=== PATIENT | female | born 1940 | race Caucasian/White ===

== ENCOUNTER 2017-08-07 07:40 | Observation (INO) ==
--- NOTE | 2017-08-07 07:57 | Emergency Department Note ---
Disposition Clinical Impression: Disequilibrium, Frequent falls, Unsteady gait, UTI (urinary tract infection) Disposition: Admitted As Inpatient Condition: Good General Adult HPI - General Chief complaint: ED Fall Stated complaint: Multiple falls Time Seen by Provider: 08/07/17 07:54 Source: patient, family Limitations: no limitations - History of Present Illness Pain Scale: 0 - Related Data Home Medications Medication Instructions Recorded Confirmed ALPRAZolam [Xanax 0.25 MG Tablet] 0.25 mg PO QID 08/07/17 08/07/17 Pantoprazole Sodium [Protonix] 40 mg PO DAILY 08/07/17 08/07/17 Allergies Allergy/AdvReac Type Severity Reaction Status Date / Time No Known Allergies Allergy Verified 08/07/17 09:09 Past Medical History - Past Medical History Medical history: Reports: non-contributory, arthritis, GERD, kidney stones, renal disease Surgical history: Reports: non-contributory, orthopedic, other Psychiatric history: Reports: anxiety - Social History Smoking Status: Current every day smoker Smokeless Tobacco Status: No Alcohol use: Reports: none Drug use: Reports: none Physical Exam - General Limitations: no limitations General appearance: alert Course Vital Signs Temperature 97.6 F 08/07/17 07:44 Pulse Rate 92 08/07/17 07:44 Respiratory Rate 18 08/07/17 07:44 Blood Pressure 160/96 08/07/17 07:44 O2 Sat by Pulse Oximetry 96 08/07/17 07:44 Temperature 98.1 F 08/07/17 14:56 Pulse Rate 73 08/07/17 14:56 Respiratory Rate 15 08/07/17 14:56 Blood Pressure 163/83 08/07/17 14:56 O2 Sat by Pulse Oximetry 95 08/07/17 14:56 Oxygen Delivery Oxygen Delivery Room Air Medical Decision Making - Lab Data Result diagrams: 08/07/17 08:28 08/07/17 08:28 Lab Results 08/07/17 08/07/17 08/07/17 Range/Units 08:28 08:28 08:28 WBC 7.1 (4.3-11.1) K/mcL RBC 4.35 (3.82-4.97) M/mcL Hgb 13.5 (11.5-15.4) g/dL Hct 41.2 (35.3-44.9) % MCV 94.7 (83.0-100.0) fL MCH 31.0 (28.0-33.3) pg MCHC 32.8 (31.6-35.5) g/dL RDW 13.4 (11.5-14.5) % Plt Count 333 (140-400) K/mcL MPV 9.8 (9.4-12.4) fL Immature Gran % 0.4 (0-4) % Seg Neutrophils % 69.7 % Lymphocytes % 20.1 % Monocytes % 7.8 % Eosinophils % 1.7 % Basophils % 0.3 % Neutrophils # 4.9 (1.6-8.9) K/mcL Lymphocytes # 1.4 (0.6-4.6) K/mcL Monocytes # 0.6 (0.0-1.3) K/mcL Eosinophils # 0.1 (0.0-0.6) K/mcL Basophils # 0.0 (0.0-0.2) K/mcL Immature Plt Fraction 2.5 (1.1-6.1) % PT 11.1 (9.4-12.1) Seconds INR 1.0 Sodium 142 (136-145) mEq/L Potassium 4.4 (3.5-5.1) mEq/L Chloride 106 (98-107) mEq/L Carbon Dioxide 28 (23-29) mEq/L BUN 15 (8-23) mg/dL Creatinine 0.81 (0.60-1.20) mg/dL Est GFR ( Amer) > 60 (> 60) Est GFR (Non-Af Amer) > 60 (> 60) BUN/Creatinine Ratio 19 (6-26) Glucose 91 (70-105) mg/dL Calculated Osmolality 294 (280-300) Calcium 8.8 (8.6-10.3) mg/dL Magnesium 2.0 (1.6-2.6) mg/dL Total Bilirubin 0.6 (0.3-1.0) mg/dL AST 15 (13-39) Units/L ALT 14 (7-52) Units/L Alkaline Phosphatase 75 (34-104) Units/L Troponin I < 0.03 (< 0.04) ng/mL Serum Total Protein 6.4 (6.4-8.9) g/dL Albumin 3.7 (3.5-5.7) g/dL Globulin 2.7 (2.4-3.5) g/dL Albumin/Globulin Ratio 1.4 (1.1-2.2) Urine Color (Yellow) Urine Clarity (Clear) Urine pH (5.0-8.0) pH Units Ur Specific [place] (1.010-1.025) Urine Protein (Neg-Trace) mg/dL Urine Glucose (UA) (Normal) mg/dL Urine Ketones (Negative) mg/dL Urine Blood (Negative) Urine Nitrite (Negative) Urine Bilirubin (Negative) Urine Urobilinogen (Normal) mg/dL Ur Leukocyte Esterase (Negative) Urine Microscopic RBC (0-3) per hpf Urine Microscopic WBC (0-3) per hpf Ur Squamous Epith Cells (None-Few) per lpf Urine Bacteria (None-Few) per hpf Ur Culture Indicated? (NO) 08/07/17 Range/Units 09:00 WBC (4.3-11.1) K/mcL RBC (3.82-4.97) M/mcL Hgb (11.5-15.4) g/dL Hct (35.3-44.9) % MCV (83.0-100.0) fL MCH (28.0-33.3) pg MCHC (31.6-35.5) g/dL RDW (11.5-14.5) % Plt Count (140-400) K/mcL MPV (9.4-12.4) fL Immature Gran % (0-4) % Seg Neutrophils % % Lymphocytes % % Monocytes % % Eosinophils % % Basophils % % Neutrophils # (1.6-8.9) K/mcL Lymphocytes # (0.6-4.6) K/mcL Monocytes # (0.0-1.3) K/mcL Eosinophils # (0.0-0.6) K/mcL Basophils # (0.0-0.2) K/mcL Immature Plt Fraction (1.1-6.1) % PT (9.4-12.1) Seconds INR Sodium (136-145) mEq/L Potassium (3.5-5.1) mEq/L Chloride (98-107) mEq/L Carbon Dioxide (23-29) mEq/L BUN (8-23) mg/dL Creatinine (0.60-1.20) mg/dL Est GFR ( Amer) (> 60) Est GFR (Non-Af Amer) (> 60) BUN/Creatinine Ratio (6-26) Glucose (70-105) mg/dL Calculated Osmolality (280-300) Calcium (8.6-10.3) mg/dL Magnesium (1.6-2.6) mg/dL Total Bilirubin (0.3-1.0) mg/dL AST (13-39) Units/L ALT (7-52) Units/L Alkaline Phosphatase (34-104) Units/L Troponin I (< 0.04) ng/mL Serum Total Protein (6.4-8.9) g/dL Albumin (3.5-5.7) g/dL Globulin (2.4-3.5) g/dL Albumin/Globulin Ratio (1.1-2.2) Urine Color Yellow (Yellow) Urine Clarity Cloudy A (Clear) Urine pH 6.5 (5.0-8.0) pH Units Ur Specific [place] 1.017 (1.010-1.025) Urine Protein Negative (Neg-Trace) mg/dL Urine Glucose (UA) Normal (Normal) mg/dL Urine Ketones Negative (Negative) mg/dL Urine Blood Negative (Negative) Urine Nitrite Negative (Negative) Urine Bilirubin Negative (Negative) Urine Urobilinogen Normal (Normal) mg/dL Ur Leukocyte Esterase Moderate H (Negative) Urine Microscopic RBC 0-3 (0-3) per hpf Urine Microscopic WBC 0-3 (0-3) per hpf Ur Squamous Epith Cells Few (None-Few) per lpf Urine Bacteria Moderate H (None-Few) per hpf Ur Culture Indicated? YES A (NO) Attestation Statement - Attestation Attestation: I examined this patient and my medical decision-making was reviewed with the Resident Physician. I agree with the documented findings, disposition and treatment plan as described except to the extent set forth below. [id number] time provided Patient presents the care of the family for "problems with equilibrium." They state when she stands she becomes off balance and falls backwards. She has sustained multiple falls recently without traumatic injury. On exam the patient is alert and lucid and appears in no acute distress
--- NOTE | 2017-08-07 08:02 | Emergency Department Note ---
Disposition Clinical Impression: Disequilibrium, Frequent falls, Unsteady gait UTI (urinary tract infection) Qualifiers: Urinary tract infection type: site unspecified Hematuria presence: without hematuria Qualified Code(s): N39.0 - Urinary tract infection, site not specified Disposition: Admitted As Inpatient Condition: Good Referrals: Ryder Vicente Jr, MD [Primary Care Provider] - Forms: ED Satisfaction Letter Time of Disposition: 09:45 General Adult HPI - General Chief complaint: ED Fall Stated complaint: Multiple falls Time Seen by Provider: 08/07/17 07:54 Source: patient, family Mode of arrival: ambulatory Limitations: no limitations Nursing Notes Reviewed: Yes Vital Signs Reviewed: Yes - History of Present Illness HPI Narrative: Patient is a 77-year-old female with past medical history of renal disease, GERD. She presents today due to disequilibrium and frequent falls. Family is present, patient's son and . They state that over the past several months, patient has been somewhat off balance, this is gradually worsened over the past few months to the point that she loses balance when going from room to room. Occasionally, she admits to some mild dizziness, but for the most part she just admits to feeling off balance when walking and when standing still, usually falls to the side. Denies every hitting her head, denies being on blood thinners She has not had any evaluation for this symptom. This morning, the patient had a fall while in the bathroom due to "feeling off balance." Patient did not hit her head, did not lose consciousness. They were concerned for possible stroke and brought her in for further care. Patient denies any other chest pain, shortness of breath, nausea, vomiting, fevers, diarrhea, abdominal pain, numbness, tingling, weakness, current vertigo. Pain Scale: 0 - Related Data Home Medications Medication Instructions Recorded Confirmed ALPRAZolam [Xanax 0.25 MG Tablet] 0.25 mg PO QID 08/07/17 08/07/17 Pantoprazole Sodium [Protonix] 40 mg PO DAILY 08/07/17 08/07/17 Allergies Allergy/AdvReac Type Severity Reaction Status Date / Time No Known Allergies Allergy Verified 08/07/17 09:09 All systems ED: reviewed and negative except as stated. Constitutional: Denies: fever Eyes: Denies: vision change Cardiovascular: Denies: chest pain Respiratory: Denies: cough, dyspnea Gastrointestinal: Denies: abdominal pain, nausea, vomiting, diarrhea Genitourinary: Denies: urgency, dysuria Musculoskeletal: Denies: back pain, neck pain Integumentary: Denies: rash Neurological: Reports: vertigo, other (disequilibrium). Denies: headache, weakness, numbness, paresthesias Past Medical History - Past Medical History Attestation: Yes The following information was validated with the patient. Source: patient Medical history: Reports: non-contributory, arthritis, GERD, kidney stones, renal disease Surgical history: Reports: non-contributory, orthopedic, other Psychiatric history: Reports: anxiety - Social History Smoking Status: Current every day smoker Smokeless Tobacco Status: No Alcohol use: Reports: none Drug use: Reports: none Physical Exam - General Limitations: no limitations General appearance: alert - Head Head exam: atraumatic, normocephalic, normal inspection - Eye Eye exam: Present: normal appearance, PERRL, EOMI - ENT ENT exam: normal exam, normal oropharynx, mucous membranes moist - Neck Neck exam: Present: normal inspection, full ROM, trachea midline - Chest Chest inspection: Present: normal inspection, symmetric chest wall rise - Respiratory Respiratory exam: Present: normal lung sounds bilaterally - Cardiovascular Cardiovascular exam: Present: regular rate, normal rhythm, normal heart sounds - Abdominal Exam Abdominal exam: Present: soft, Non-Tender. Absent: tenderness, distention, guarding, rebound, rigidity - Extremities Exam Extremities exam: Present: normal inspection, full ROM. Absent: tenderness, pedal edema - Back Exam Back exam: Present: normal inspection, full ROM. Absent: tenderness - Neurological Exam Neurological exam: Present: alert, oriented X3, CN II-XII intact. Absent: motor sensory deficit - Expanded Neurological Exam Patient oriented to: Present: person, place, time Speech: Present: fluid speech Cranial nerves: EOM function (II, III, IV, ): Normal, facial sensation (V): Normal, facial palsy (VII): Normal, spinal accessory function (XI): Normal, tongue deviation (XII): Normal Cerebellar function: finger to nose: Normal, heel to [place]: Normal Motor strength - LUE: 5/5 Motor strength - RUE: 5/5 Motor strength - LLE: 5/5 Motor strength - RLE: 5/5 Sensory exam upper extremity: light touch: Normal Sensory exam lower extremity: light touch: Normal Spinal cord function: Present: intact bulbocavernosus reflex Coma Scale Eye Opening: Spontaneous Coma Scale Motor Response: Obeys Commands Coma Scale Verbal Response: Oriented Coma Scale Total: 15 - Psychiatric Psychiatric exam: Present: normal affect, normal mood - Skin Skin exam: Present: warm, dry, intact, normal color Course Course Narrative: History of disequilibrium concerning for possible cerebellar involvement such as stroke or tumor. Physical exam shows no focal neuro deficits, no slurred speech, no facial droop, NIH 0. However, ambulation around the room with assistance of myself and nursing staff showed singificant disequilibrium, falling to sides. She continued to deny any vertigo while ambulating. We will obtain CT of the head for further evaluation. We will also obtain basic blood work, troponin, EKG, urinalysis. If head CT is negative, patient will require admission due to disequilibrium, frequent falls, unsafe ambulation, needs further CVA workup for possible posterior cerebellar stroke that needs to be further assessed by MRI head and MRA neck. 09:18 basic blood work within normal limits, troponin negative. Head CT negative for any acute intracranial process. Currently waiting on urinalysis. We will proceed with above plan. 09:33 patient has UTI. We will treat with Rocephin. Vital Signs Temperature 97.6 F 08/07/17 07:44 Pulse Rate 92 08/07/17 07:44 Respiratory Rate 18 08/07/17 07:44 Blood Pressure 160/96 08/07/17 07:44 O2 Sat by Pulse Oximetry 96 08/07/17 07:44 Temperature 97.6 F 08/07/17 07:44 Pulse Rate 61 08/07/17 09:14 Respiratory Rate 16 08/07/17 09:14 Blood Pressure 182/94 08/07/17 09:14 O2 Sat by Pulse Oximetry 94 08/07/17 09:14 Oxygen Delivery Oxygen Delivery Room Air Medical Decision Making - [facility] Narrative Medical decision making narrative: History of disequilibrium concerning for possible cerebellar involvement such as stroke or tumor. Physical exam shows no focal neuro deficits, no slurred speech, no facial droop, NIH 0. However, ambulation around the room with assistance of myself and nursing staff showed singificant disequilibrium, falling to sides. She continued to deny any vertigo while ambulating. We will obtain CT of the head for further evaluation. We will also obtain basic blood work, troponin, EKG, urinalysis. If head CT is negative, patient will require admission due to disequilibrium, frequent falls, unsafe ambulation, needs further CVA workup for possible posterior cerebellar stroke that needs to be further assessed by MRI head and MRA neck. 09:18 basic blood work within normal limits, troponin negative. Head CT negative for any acute intracranial process. Currently waiting on urinalysis. We will proceed with above plan. 09:33 patient has UTI. We will treat with Rocephin. - Medical Records Medical records reviewed: Yes I reviewed the patient's medical records. - Lab Data Lab results reviewed: Yes I reviewed the patient's lab results. Result diagrams: 08/07/17 08:28 08/07/17 08:28 Lab Results 08/07/17 08/07/17 08/07/17 Range/Units 08:28 08:28 08:28 WBC 7.1 (4.3-11.1) K/mcL RBC 4.35 (3.82-4.97) M/mcL Hgb 13.5 (11.5-15.4) g/dL Hct 41.2 (35.3-44.9) % MCV 94.7 (83.0-100.0) fL MCH 31.0 (28.0-33.3) pg MCHC 32.8 (31.6-35.5) g/dL RDW 13.4 (11.5-14.5) % Plt Count 333 (140-400) K/mcL MPV 9.8 (9.4-12.4) fL Immature Gran % 0.4 (0-4) % Seg Neutrophils % 69.7 % Lymphocytes % 20.1 % Monocytes % 7.8 % Eosinophils % 1.7 % Basophils % 0.3 % Neutrophils # 4.9 (1.6-8.9) K/mcL Lymphocytes # 1.4 (0.6-4.6) K/mcL Monocytes # 0.6 (0.0-1.3) K/mcL Eosinophils # 0.1 (0.0-0.6) K/mcL Basophils # 0.0 (0.0-0.2) K/mcL Immature Plt Fraction 2.5 (1.1-6.1) % PT 11.1 (9.4-12.1) Seconds INR 1.0 Sodium 142 (136-145) mEq/L Potassium 4.4 (3.5-5.1) mEq/L Chloride 106 (98-107) mEq/L Carbon Dioxide 28 (23-29) mEq/L BUN 15 (8-23) mg/dL Creatinine 0.81 (0.60-1.20) mg/dL Est GFR ( Amer) > 60 (> 60) Est GFR (Non-Af Amer) > 60 (> 60) BUN/Creatinine Ratio 19 (6-26) Glucose 91 (70-105) mg/dL Calculated Osmolality 294 (280-300) Calcium 8.8 (8.6-10.3) mg/dL Magnesium 2.0 (1.6-2.6) mg/dL Total Bilirubin 0.6 (0.3-1.0) mg/dL AST 15 (13-39) Units/L ALT 14 (7-52) Units/L Alkaline Phosphatase 75 (34-104) Units/L Troponin I < 0.03 (< 0.04) ng/mL Serum Total Protein 6.4 (6.4-8.9) g/dL Albumin 3.7 (3.5-5.7) g/dL Globulin 2.7 (2.4-3.5) g/dL Albumin/Globulin Ratio 1.4 (1.1-2.2) Urine Color (Yellow) Urine Clarity (Clear) Urine pH (5.0-8.0) pH Units Ur Specific [place] (1.010-1.025) Urine Protein (Neg-Trace) mg/dL Urine Glucose (UA) (Normal) mg/dL Urine Ketones (Negative) mg/dL Urine Blood (Negative) Urine Nitrite (Negative) Urine Bilirubin (Negative) Urine Urobilinogen (Normal) mg/dL Ur Leukocyte Esterase (Negative) Urine Microscopic RBC (0-3) per hpf Urine Microscopic WBC (0-3) per hpf Ur Squamous Epith Cells (None-Few) per lpf Urine Bacteria (None-Few) per hpf Ur Culture Indicated? (NO) 08/07/17 Range/Units 09:00 WBC (4.3-11.1) K/mcL RBC (3.82-4.97) M/mcL Hgb (11.5-15.4) g/dL Hct (35.3-44.9) % MCV (83.0-100.0) fL MCH (28.0-33.3) pg MCHC (31.6-35.5) g/dL RDW (11.5-14.5) % Plt Count (140-400) K/mcL MPV (9.4-12.4) fL Immature Gran % (0-4) % Seg Neutrophils % % Lymphocytes % % Monocytes % % Eosinophils % % Basophils % % Neutrophils # (1.6-8.9) K/mcL Lymphocytes # (0.6-4.6) K/mcL Monocytes # (0.0-1.3) K/mcL Eosinophils # (0.0-0.6) K/mcL Basophils # (0.0-0.2) K/mcL Immature Plt Fraction (1.1-6.1) % PT (9.4-12.1) Seconds INR Sodium (136-145) mEq/L Potassium (3.5-5.1) mEq/L Chloride (98-107) mEq/L Carbon Dioxide (23-29) mEq/L BUN (8-23) mg/dL Creatinine (0.60-1.20) mg/dL Est GFR ( Amer) (> 60) Est GFR (Non-Af Amer) (> 60) BUN/Creatinine Ratio (6-26) Glucose (70-105) mg/dL Calculated Osmolality (280-300) Calcium (8.6-10.3) mg/dL Magnesium (1.6-2.6) mg/dL Total Bilirubin (0.3-1.0) mg/dL AST (13-39) Units/L ALT (7-52) Units/L Alkaline Phosphatase (34-104) Units/L Troponin I (< 0.04) ng/mL Serum Total Protein (6.4-8.9) g/dL Albumin (3.5-5.7) g/dL Globulin (2.4-3.5) g/dL Albumin/Globulin Ratio (1.1-2.2) Urine Color Yellow (Yellow) Urine Clarity Cloudy A (Clear) Urine pH 6.5 (5.0-8.0) pH Units Ur Specific [place] 1.017 (1.010-1.025) Urine Protein Negative (Neg-Trace) mg/dL Urine Glucose (UA) Normal (Normal) mg/dL Urine Ketones Negative (Negative) mg/dL Urine Blood Negative (Negative) Urine Nitrite Negative (Negative) Urine Bilirubin Negative (Negative) Urine Urobilinogen Normal (Normal) mg/dL Ur Leukocyte Esterase Moderate H (Negative) Urine Microscopic RBC 0-3 (0-3) per hpf Urine Microscopic WBC 0-3 (0-3) per hpf Ur Squamous Epith Cells Few (None-Few) per lpf Urine Bacteria Moderate H (None-Few) per hpf Ur Culture Indicated? YES A (NO) - Radiology Data Radiology results reviewed: Yes I reviewed the patient's radiology results. - EKG Data EKG #1 EKG attestation: Yes I reviewed and interpreted this EKG. EKG results narrative: 08/07/2017 at 07:55. Normal sinus rhythm. Rate 84. LA 142. QRS 84. QTC 410. Left axis deviation. No acute ST elevation or depression. T-wave inversion in lead 3 is new compared to previous EKGs. Previous EKG was performed on 07/09/2010. S.B.ABi - Hossein.Aniket Situation: Demographics, MOA Background: Presenting Complaint, Relevant PMH, Meds, & Allergies Assessment: Vital Signs, Course and respsone to treatment, Exam Concerns, Patient/Family Expectation, Pertinant Lab Results Recommendation: Barrier(s) to disposition, Recommendation based on pending studies, treatments, or consults S.B.A.Mary Jo Report Given to: Dr Dominique Stoddard Repor Time: 09:44 NIH Stroke Scale - Level of Consciousness LOC: Alert - LOC Questions LOC Questions: Answers both correctly - LOC Commands LOC Commands: Performs both correctly - Best Gaze Best Gaze: Normal - Visual Visual: No visual loss - Facial Palsy Facial Palsy: Normal - Motor Arms Motor Arm-Left: No drift for 10 seconds Motor Arm-Right: No drift for 10 seconds - Motor Legs Motor Leg-Left: No drift for 5 seconds Motor Leg-Right: No drift for 5 seconds - Limb Ataxia Limb Ataxia: Absent of affected limb too weak to perform exam - Sensory Sensory: Normal - Best Language Best Language: No aphasia - Dysarthria Dysarthria: Normal - Extinction and Inattention Extinction and Inattention: Normal - NIHSS Total Score NIHSS Total Score: 0
[2017-08-07 08:42] LABS: Basophils % 0.3 %; Eosinophils # 0.1 K/mcL (0.0-0.6); Eosinophils % 1.7 %; Hematocrit 41.2 % (35.3-44.9); Hemoglobin 13.5 g/dL (11.5-15.4); Immature Granulocytes % 0.4 % (0-4); Immature Platelets 2.5 % (1.1-6.1); Lymphocytes # 1.4 K/mcL (0.6-4.6); Lymphocytes % 20.1 %; Mean Corpuscular HGB Conc 32.8 g/dL (31.6-35.5); Mean Corpuscular Volume 94.7 fL (83.0-100.0); Mean Platelet Volume 9.8 fL (9.4-12.4); Monocytes # 0.6 K/mcL (0.0-1.3); Monocytes % 7.8 %; Neutrophils # 4.9 K/mcL (1.6-8.9); Platelet Count 333 K/mcL (140-400); Red Blood Count 4.35 M/mcL (3.82-4.97); Red Cell Distribution Width 13.4 % (11.5-14.5); Segmented Neutrophils % 69.7 %
[2017-08-07 08:52] LABS: Prothrombin Time 11.1 Seconds (9.4-12.1)
[2017-08-07 09:00] LABS: Alanine Aminotransferase 14 Units/L (7-52); Albumin 3.7 g/dL (3.5-5.7); Albumin/Globulin Ratio 1.4 (1.1-2.2); Alkaline Phosphatase 75 Units/L (34-104); Aspartate Amino Transferase 15 Units/L (13-39); BUN/Creatinine Ratio 19 (6-26); Bilirubin,Total 0.6 mg/dL (0.3-1.0); Blood Urea Nitrogen 15 mg/dL (8-23); Calcium 8.8 mg/dL (8.6-10.3); Carbon Dioxide 28 mEq/L (23-29); Chloride 106 mEq/L (98-107); Globulin 2.7 g/dL (2.4-3.5); Glucose 91 mg/dL (70-105); Osmolality,Calculated 294 (280-300); Potassium 4.4 mEq/L (3.5-5.1); Sodium 142 mEq/L (136-145); Total Protein 6.4 g/dL (6.4-8.9); Troponin I < 0.03 ng/mL (< 0.04); eGFR For African Americans > 60 (> 60); eGFR For Non-African Americans > 60 (> 60)
[2017-08-07 09:22] LABS: Clarity,Urine Cloudy (Clear); Color,Urine Yellow (Yellow)
[2017-08-07 09:23] LABS: Bilirubin,Urine Negative (Negative); Blood,Urine Negative (Negative); Glucose,Urine (UA) Normal (Normal); Ketones,Urine Negative (Negative); Leukocyte Esterase,Urine Moderate (Negative); Nitrite,Urine Negative (Negative); PH,Urine 6.5 pH Units (5.0-8.0); Protein,Urine Negative (Neg-Trace); Specific Gravity,Urine 1.017 (1.010-1.025); Urobilinogen,Urine Normal (Normal)
[2017-08-07 09:25] LABS: Bacteria,Urine Moderate per hpf (None-Few); RBC,Urine 0-3 per hpf (0-3); Squamous Epithelial Cell,Urine Few per lpf (None-Few); WBC,Urine 0-3 per hpf (0-3)
[2017-08-07] MEDS ORDERED: cefTRIAXone 2,000 MG in Water for inj. (sterile) 20 ML IVP ONE (09:33)
--- NOTE | 2017-08-07 11:48 | Internal Med History&Physical ---
Date of Encounter: 08/07/17 Time of Encounter: 11:40 Internal Medicine - H&P: HPI Chief complaint: falling Admitted From: Home Plans for Post Hospital Care: Transfer Saw Operator Care History of present illness: Ms. Delgadillo is a 77 year old female who has anxiety GERD presenting emergency room for recurrent falls at home. Patient lives with , she has been falling over last 3 weeks, progressively getting worse, she fell this morning backward, but did not land on the floor because her and the family have been chasing her around to prevent fall. CT of the head shows stable atrophy, chronic microvascular disease. She did have some bruising in the back area. When I saw her she is alert oriented 3, she has deformed toes and one toe has black color, possibly injury or ischemia. Patient is going be admitted to recurrent fall, loss of balance, will do MRI brain C-spine and T-spine and L- spine. Consult PT and OT, most likely she will need a rehabilitation She has bacteriuria but to not meet criteria for UTI. Past Med Surg Social Fam HX - Past Medical History Medical history: non-contributory, arthritis, GERD, kidney stones, renal disease Psychiatric history: anxiety - Past Surgical History Surgical History: non-contributory, orthopedic, other - Social History Smoking Status: Current every day smoker Smokeless Tobacco Status: No Alcohol use: none Drug use: none - Family History Mother Living Status: Internal Medicine - H&P: Meds ALPRAZolam [Xanax 0.25 MG Tablet] 0.25 mg PO QID 08/07/17 [History] Pantoprazole Sodium [Protonix] 40 mg PO DAILY 08/07/17 [History] 3 Allergy/AdvReac Type Severity Reaction Status Date / Time No Known Allergies Allergy Verified 08/07/17 09:09 All Systems PM: A 10-system review of systems was performed and is negative for pertinent findings except as documented above in the HPI. - Constitutional Vitals: Temp Pulse Resp BP Pulse Ox 97.8 F 79 15 158/95 97 08/07/17 10:48 08/07/17 10:48 08/07/17 10:48 08/07/17 10:48 08/07/17 10:48 Internal Med - H&P Results - Labs CBC & Chem 7: 08/07/17 08:28 08/07/17 08:28 - Assessment and plan (1) Frequent falls Current Visit: Yes Status: Acute Assessment and plan: Patient lost of balance, falling backwards most of time. She denies vertigo symptoms. CT scan shows chronic atrophy. Will do MRI brain spine consult PTOT and the neurologist (2) Discoloration of skin of foot Current Visit: Yes Status: Acute Assessment and plan: one toe of left foot has discoloration will check duplex for PAD (3) Bacteremia Current Visit: Yes Status: Acute Assessment and plan: received one dose of ceftriaxone - Time Spent With Patient Total time spent is greater than 50% in coordination of care (as documented) at patient's floor/unit and/or counseling patient: Greater than 35 minutes
[2017-08-07] MEDS ORDERED: Naloxone 0.4 MG/ML INJ IVP PRN (11:54)
[2017-08-07] MEDS: ALPRAZolam 0.25 MG TABLET PO SCH ×3 (13:44→20:48)
--- NOTE | 2017-08-07 22:48 | Event Note ---
Date of Encounter: 08/07/17 Time of Encounter: 22:06 Alerted by pts. nurse Alberto RN that the pt. had fallen and that it was an unwitnessed fall. Went to assess pt. who was resting in bed. When asked what happened, the pt. reported she got out of bed and fell and hit the back of her head and right wrist. Pt. denied neck pain on exam or pain in any other areas. Pt. was alert and oriented and asked for her Xanax. Full set of vitals ordered w /stat EKG. Stat CT of the head/brain and stat XR of the right forearm and wrist ordered. Pt. is falls precautions. After assessment of the pt. the pts. stated that her fall was his fault. When asked why, he stated that he had turned of the pts. bed alarm and he had fallen asleep in chair bedside pts. bed. He woke up to find her on the floor. Pts. instructed to not turn off the bed alarm for any reason. Will hold pts. Xanax for now d/t ambulation instability. Pt. is not currently anticoagulated. I had discussion w/pts. regarding her Xanax dosing and how she may have to have lower dosing prescribed by her PCP d/t falls and instability at home. stated that the pt. is very unstable on her feet and he cannot safely ambulate her on his own. SW consult placed to discuss possible short-term placement for rehabilitation. Pt. and VS to be monitored closely. Will await imaging results.
--- NOTE | 2017-08-08 00:46 | Event Note ---
Date of Encounter: 08/08/17 Time of Encounter: 00:45 Was notified that the patient's xrays were resulted after a fall earlier in the night (see event note written Chetan Manjarrez from earlier). Patient has an acute right radial neck fracture. She is sleeping comfortably. c/s orthopedics. NPO for now till seen by them
[2017-08-08 05:29] LABS: Hematocrit 40.1 % (35.3-44.9); Hemoglobin 13.1 g/dL (11.5-15.4); Mean Corpuscular HGB Conc 32.7 g/dL (31.6-35.5); Mean Corpuscular Hemoglobin 30.7 pg (28.0-33.3); Mean Corpuscular Volume 93.9 fL (83.0-100.0); Mean Platelet Volume 10.5 fL (9.4-12.4); Platelet Count 334 K/mcL (140-400); Red Blood Count 4.27 M/mcL (3.82-4.97); Red Cell Distribution Width 13.5 % (11.5-14.5)
[2017-08-08 05:46] LABS: BUN/Creatinine Ratio 18 (6-26); Blood Urea Nitrogen 16 mg/dL (8-23); Calcium 8.8 mg/dL (8.6-10.3); Carbon Dioxide 25 mEq/L (23-29); Chloride 105 mEq/L (98-107); Glucose 94 mg/dL (70-105); Osmolality,Calculated 287 (280-300); Potassium 4.3 mEq/L (3.5-5.1); Sodium 138 mEq/L (136-145); eGFR For African Americans > 60 (> 60); eGFR For Non-African Americans > 60 (> 60)
[2017-08-08] MEDS ORDERED: OXYCODONE Oral CONC 10 MG/0.5 ML ORAL.SYG SL PRN ×2 (08:51→08:53)
--- NOTE | 2017-08-08 15:12 | Internal Med Progress Note ---
Date of Encounter: 08/08/17 Time of Encounter: 15:12 - Assessment and plan (1) Frequent falls Current Visit: Yes Status: Acute Assessment and plan: 1 patient has had frequent falls over the past few weeks according to the patient , she falls almost daily sometimes twice a day. He attempts to monitor her movements and assist her. Apparently overnight while in the hospital she sustained a fall while attempting to get up to go to the bathroom. She complains of no pain at this time x-ray of right forearm shows a suspected right impacted acute radial neck fracture. CT of head was negative MRI of head was negative cervical spine is negative at this time. The falls may have multiple contributing factors including medications patient is on Xanax 4 times a day which may be affecting her balance. She also has severe hammertoes bilaterally it appears that she attempts to walk on the heels of her feet this combined with the medication may be contributing to the unsteadiness. Also patient has UTI all 3 of these could be contributing factor We will obtain orthostatic vital signs as well as echo. She will be on fall precautions. Consult PT OT, consult neurology as needed (2) Unsteady gait Current Visit: Yes Status: Acute Assessment and plan: See above (3) UTI (urinary tract infection) Current Visit: Yes Status: Acute Assessment and plan: We will treat with Rocephin pending culture sensitivity Qualifiers: Urinary tract infection type: site unspecified Hematuria presence: without hematuria Qualified Code(s): N39.0 - Urinary tract infection, site not specified (4) Discoloration of skin of toe Current Visit: Yes Status: Acute Assessment and plan: 1. Second toe of left foot discoloration,-purple in color. She does have good pulses BROOKS was completed which was normal, as patient if she injured her foot she is a diet no feeling in my feet. We will consult podiatry concerning discoloration (5) DVT prophylaxis Current Visit: Yes Status: Acute Assessment and plan: SCD - Time Spent With Patient Total time spent is greater than 50% in coordination of care (as documented) at patient's floor/unit and/or counseling patient: - Subjective Interval history: Patient was seen and examined at bedside earlier today. Patient is alert and oriented 3 following simple commands. She denies any pain or discomfort at this time. I did speak with the patient's who is at bedside who expresses concern about patient's frequent falls. Apparently she has had several falls over the past few weeks. She did have a fall overnight while in the hospital while attempting to get out of bed. X-ray of right forearm suspected impacted acute radial neck fracture. - Constitutional Vitals: Temp Pulse Resp BP Pulse Ox 97.9 F 79 16 168/96 96 08/08/17 11:29 08/08/17 11:29 08/08/17 11:29 08/08/17 11:29 08/08/17 11:29 General appearance: Present: A&O X 3 - Head Head exam: Present: atraumatic, normocephalic - Eye Eye exam: Present: PERRL, conjuntiva pink, sclera anicteric Pupils: Present: PERRL - Neck Neck exam general surgery: Present: supple, trachea midline. Absent: lymphadenopathy - Respiratory Respiratory exam: Present: CTAB. Absent: accessory muscle use, rales, rhonchi, wheezes - Cardiovascular Cardiovascular exam: Present: RRR, +S1, +S2. Absent: diastolic murmur, gallop, rubs, systolic murmur - GI/Abdominal GI/Abdominal exam: Present: normal bowel sounds, soft, no peritoneal signs. Absent: distended, tenderness - Extremities Exam Extremities exam: Present: warm, radial pulses palpable and symmetrical. Absent : calf tenderness, cyanotic, pedal edema - Neurological Exam Neurological exam: Present: CN II-XII intact, oriented X3, no focal deficits. Absent: pronater drift, facial droop, speech deficit - Skin Skin exam: Present: dry, intact Internal Medicine: Result - Labs CBC & Chem 7: 08/08/17 03:30 08/08/17 03:30 Labs: Short CBC 08/08/17 Range/Units 03:30 WBC 8.7 (4.3-11.1) K/mcL Hgb 13.1 (11.5-15.4) g/dL Hct 40.1 (35.3-44.9) % Plt Count 334 (140-400) K/mcL BMP 08/08/17 03:30 Sodium 138 Potassium 4.3 Chloride 105 Carbon Dioxide 25 BUN 16 Creatinine 0.87 Glucose 94 Calcium 8.8 - ABG Interpretation ABG results: PT/INR, D-dimer PT 11.1 Seconds (9.4-12.1) 08/07/17 08:28 - Impressions Impressions Head CT 08/07/17 22:11 IMPRESSION: No acute intracranial abnormality. Chronic small vessel ischemic disease. D/ / 08/08/2017 06:59:42 Juanito Sainz MD / dianelys Interpreting Provider: Juanito Sainz MD Forearm X-Ray 08/07/17 22:13 IMPRESSION: Suspected impacted acute radial neck fracture. Osteopenia. D/ / 08/08/2017 07:03:05 Kimo Acosta MD / dianelys Interpreting Provider: Kimo Acosta MD Brain MRI 08/08/17 11:57 IMPRESSION: 1. Examination is severely degraded by patient motion artifact. 2. Within this limitation, no evidence of acute infarction. 3. Diffuse parenchymal volume loss and sequela of chronic microvascular ischemic changes. D/ / Adrien Goel MD / Adrien Goel MD Interpreting Provider: Adrien Goel MD Cervical Spine MRI 08/08/17 12:00 IMPRESSION: Motion artifact degrades the images. Disc and osteophytes result in mild narrowing of the neural foramina, mild stenosis of the thecal sac at C4-5 and C5-6. D/ / 08/08/2017 11:49:58 Melanie Chavez MD / sterling Interpreting Provider: Melanie Chavez MD Consult Discharge Plan - Plan Referrals: Ryder Vicente Jr, MD [Primary Care Provider] -
[2017-08-08] MEDS: cefTRIAXone 1,000 MG in Water for inj. (sterile) 20 ML 10 ML IVP SCH (15:36)
[2017-08-08] MEDS: ALPRAZolam 0.25 MG TABLET PO PRN (15:36)
--- NOTE | 2017-08-08 16:57 | Electrocardiograph Report ---
[place] [id number] Test Date: 2017-08-07 Pat Name: Nimo Delgadillo Department: 102 Room: 3B22 Gender: F Assistant Oceanographer: : 1940 Requested By: Uche Lloyd Order Number: [id number] Reading MD: Kacey Willis Measurements Intervals [place] Rate: 84 P: 16 [place]: 142 QRS: -21 QRSD: 84 T: 8 QT: 369 QTc: 410 Interpretive Statements SINUS RHYTHM BORDERLINE LEFTWARD AXIS Electronically Signed On 08-08-2017 16:55:36 EDT by Kacey Willis
--- NOTE | 2017-08-08 19:45 | Orthopedic Consult Note ---
Date of Encounter: 08/08/17 Time of Encounter: 19:42 Assessment and Plan (1) Fracture of radial neck Current Visit: Yes Status: Acute I did discuss the diagnosis in detail the patient as well as her . She does have a radial neck fracture on the right of indeterminate age. My recommendation at this point is motion exercises to reduce the risks of stiffness and to limit her weightbearing on the right upper extremity. Otherwise activities as tolerated from an orthopedic standpoint. Follow up in the office with me in 1 week for repeat xrays to confirm stability. Orthopedically stable for discharge. I will be available for reconsultation as needed for any new orthopedic concerns. Qualifiers: Qualified Code(s): S52.136A - Nondisplaced fracture of neck of unspecified radius, initial encounter for closed fracture History of Present Illness HPI: Ms. Delgadillo is a 77 year old female admitted to the hospitalist due to multiple falls. Orthopedics was consulted to evaluate the right elbow due to concern for radial neck fracture on the right. The patient lives with her and is an unassisted ambulator. Despite the consult for fracture the patient actually denies extremity pain. She denies any numbness, tingling, or other signs or symptoms. There are no modifying factors. Past Med Surg Social Fam HX - Past Medical History Medical history: non-contributory, arthritis, GERD, kidney stones, renal disease Psychiatric history: anxiety - Past Surgical History Surgical History: non-contributory, orthopedic, other - Social History Smoking Status: Current every day smoker Smokeless Tobacco Status: No Alcohol use: none Drug use: none - Family History Mother Living Status: Medications and Allergies ALPRAZolam [Xanax 0.25 MG Tablet] 0.25 mg PO QID 08/07/17 [History] Pantoprazole Sodium [Protonix] 40 mg PO DAILY 08/07/17 [History] 3 Allergy/AdvReac Type Severity Reaction Status Date / Time No Known Allergies Allergy Verified 08/07/17 09:09 Review of systems: Constitutional and musculoskeletal systems were reviewed and are negative unless otherwise stated in history of present illness. Physical Exam - Constitutional Vitals: Temp Pulse Resp BP Pulse Ox 97.7 F 85 15 134/77 93 08/08/17 19:05 08/08/17 19:05 08/08/17 19:05 08/08/17 19:05 08/08/17 19:05 Constitutional -Vitals reviewed -The patient is well developed and well nourished. -Mood is pleasant. -The patient is well groomed. Psychiatric -The patient is fully alert and oriented x 3. Respiratory: -Respiratory effort normal Abdomen: -Soft abdomen -Non tender -Non distended: Left upper extremity: -No deformities. The overlying skin is intact. Moderate ecchymosis to the lateral aspect of the elbow and forearm region proximally -Tenderness to palpation over the lateral elbow -No significant pain with passive motion of the shoulder, elbow, wrist, and fingers within the limits of the bed. -Able to make an "OK" sign, cross the index and long fingers, and extend the thumb. -Sensation grossly intact to light touch throughout the median, radial, and ulnar distributions. -Radial pulse is present; Fingers have good capillary refill. Right upper extremity: -No deformities. The overlying skin is intact. No obvious signs of acute trauma. -No tenderness to palpation throughout. -No significant pain with passive motion of the shoulder, elbow, wrist, and fingers within the limits of the bed. -Able to make an "OK" sign, cross the index and long fingers, and extend the thumb. -Sensation grossly intact to light touch throughout the median, radial, and ulnar distributions. -Radial pulse is present; Fingers have good capillary refill. Left lower extremity: -No deformities. The overlying skin is intact. No obvious signs of acute trauma. -No tenderness to palpation throughout. -No pain with passive motion of the hip, knee, ankle, and toes within the limits of the bed. -No pain with axial loading of the thigh. -Able to dorsiflex and plantarflex the ankle and toes. -Sensation is grossly intact to light touch throughout the sural, saphenous, superficial peroneal, and deep peroneal distributions. -Toes have good capillary refill. Right lower extremity: -No deformities. The overlying skin is intact. No obvious signs of acute trauma. -No tenderness to palpation throughout. -No pain with passive motion of the hip, knee, ankle, and toes within the limits of the bed. -No pain with axial loading of the thigh. -Able to dorsiflex and plantarflex the ankle and toes. -Sensation is grossly intact to light touch throughout the sural, saphenous, superficial peroneal, and deep peroneal distributions. -Toes have good capillary refill. Diagnostic Imaging: I did personally review and interpret x-rays of the left elbow do not show any fractures. Right forearm x-ray does demonstrate a radial neck fracture which is impacted and of indeterminant age. Results - Labs Result Diagrams: 08/08/17 03:30 08/08/17 03:30 Labs: Abnormal lab results B-Natriuretic Peptide 121 pg/mL (Less than 100) H 08/08/17 03:30 Urine Clarity Cloudy (Clear) A 08/07/17 09:00 Ur Leukocyte Esterase Moderate (Negative) H 08/07/17 09:00 Urine Bacteria Moderate per hpf (None-Few) H 08/07/17 09:00 Ur Culture Indicated? YES (NO) A 08/07/17 09:00 H & H 08/08/17 Range/Units 03:30 Hgb 13.1 (11.5-15.4) g/dL Hct 40.1 (35.3-44.9) % All other labs normal. Consult Discharge Plan - Plan Referrals: Ryder Vicente Jr, MD [Primary Care Provider] -
[2017-08-08] MEDS ORDERED: ALPRAZolam 0.25 MG TABLET PO SCH (21:00)
[2017-08-09 04:54] LABS: Basophils % 0.3 %; Eosinophils # 0.2 K/mcL (0.0-0.6); Hematocrit 40.4 % (35.3-44.9); Hemoglobin 13.2 g/dL (11.5-15.4); Immature Granulocytes % 0.6 % (0-4); Lymphocytes # 1.8 K/mcL (0.6-4.6); Lymphocytes % 19.2 %; Mean Corpuscular HGB Conc 32.7 g/dL (31.6-35.5); Mean Corpuscular Hemoglobin 30.8 pg (28.0-33.3); Mean Corpuscular Volume 94.2 fL (83.0-100.0); Mean Platelet Volume 10.7 fL (9.4-12.4); Monocytes # 0.8 K/mcL (0.0-1.3); Monocytes % 8.6 %; Neutrophils # 6.5 K/mcL (1.6-8.9); Platelet Count 345 K/mcL (140-400); Red Blood Count 4.29 M/mcL (3.82-4.97); Red Cell Distribution Width 13.6 % (11.5-14.5); Segmented Neutrophils % 69.3 %
[2017-08-09 05:14] LABS: Alanine Aminotransferase 13 Units/L (7-52); Albumin 3.6 g/dL (3.5-5.7); Albumin/Globulin Ratio 1.4 (1.1-2.2); Alkaline Phosphatase 72 Units/L (34-104); Aspartate Amino Transferase 14 Units/L (13-39); BUN/Creatinine Ratio 20 (6-26); Bilirubin,Total 0.5 mg/dL (0.3-1.0); Blood Urea Nitrogen 17 mg/dL (8-23); Calcium 8.8 mg/dL (8.6-10.3); Carbon Dioxide 25 mEq/L (23-29); Chloride 103 mEq/L (98-107); Globulin 2.6 g/dL (2.4-3.5); Glucose 97 mg/dL (70-105); Osmolality,Calculated 283 (280-300); Potassium 4.3 mEq/L (3.5-5.1); Sodium 136 mEq/L (136-145); Total Protein 6.2 g/dL (6.4-8.9); eGFR For African Americans > 60 (> 60); eGFR For Non-African Americans > 60 (> 60)
[2017-08-09] MEDS: cefTRIAXone 1,000 MG in Water for inj. (sterile) 20 ML 10 ML IVP SCH (09:01)
[2017-08-09] MEDS: ALPRAZolam 0.25 MG TABLET PO PRN (09:01)
--- NOTE | 2017-08-09 13:39 | Podiatry Consult Note ---
Date of Encounter: 08/09/17 Time of Encounter: 12:30 Assessment and Plan (1) Discoloration of skin of toe Current visit: Yes Status: Acute Ecchymosis of toe #2 left foot secondary to a traumatic injury. WBC: 9.4 Significant osteoarthrits of both feet. History of HAV correction which failed. Patient with significantly deformed toes #2, #3, #4, #5 of both feet. Denies any pain currently to the left foot. Plan: Will order an xray of the left foot with attention to toe #2. Recommend keeping toe #2 of the left foot protected. Will order a post op surgical shoe. F/u with patient once xrays are obtained and reviewed. (2) Frequent falls Current visit: Yes Status: Acute (3) Unsteady gait Current visit: Yes Status: Acute History of Present Illness HPI: Ms. Delgadillo is a 77 year old female admitted to [facility] for frequent falls. Patient has a medical history significant for arthritis, GERD, kidney stones, renal disease, and anxiety. Podiatry was consulted to evaluate toe #2 of the left foot. Patient is lying in bed with spouse at bedside. Patient states she noticed discoloration to toe #2 of the left foot a week ago. Patient has had recurrent falls, but does not remember injuring the toe. Spouse states today was the first day he was that her toe was discolored. Patient does have a history significant osteoarthrits of both feet. History of HAV correction which failed. Patient with significantly deformed toes #2, #3, #4, #5 of both feet. Patient denies any pain currently to the left foot. Patient and spouse deny any history of DM or PVD. No c/o cp, sob, fever or chills. Past Med Surg Social Fam HX - Past Medical History Medical history: non-contributory, arthritis, GERD, kidney stones, renal disease Psychiatric history: anxiety - Past Surgical History Surgical History: non-contributory, orthopedic, other - Social History Smoking Status: Current every day smoker Smokeless Tobacco Status: No Alcohol use: none Drug use: none - Family History Mother Living Status: Medications and Allergies ALPRAZolam [Xanax 0.25 MG Tablet] 0.25 mg PO QID 08/07/17 [History] Pantoprazole Sodium [Protonix] 40 mg PO DAILY 08/07/17 [History] 3 Allergy/AdvReac Type Severity Reaction Status Date / Time No Known Allergies Allergy Verified 08/07/17 09:09 Physical Exam - Constitutional Vitals: Temp Pulse Resp BP Pulse Ox 99.1 F 80 17 110/72 95 08/09/17 11:09 08/09/17 11:09 08/09/17 11:09 08/09/17 11:09 08/09/17 11:09 Exam: General appearance: alert, awake, oriented X 3. Vascular: Pedal pulses + 1/4 DP/PT. No evidence of cyanosis, pallor or rubor. Edema graded at 0/4. Skin Temperature warm to warm from toes to tibia. varicose veins noted. Homans Sign is neg. Capillary refill time is immediate to digits.. Neurologic: Sensation intact with light touch to both feet. 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 Significant deformity of all digits in the transverse sagittal and frontal planes. Toe #2 left foot with dark ecchymosis to the dorsal aspect at the proximal phalanx, light ecchymosis to the distal phalanx dorsal aspect, pain with passive ROM. No pain with active ROM or upon palpation. Toe is warm to touch, no fluctuance, there is a callused lesion to the dorsal aspect of the DIP joint, no signs of bacterial infection Results - Labs Result Diagrams: 08/09/17 03:52 08/09/17 03:52 Labs: Abnormal lab results B-Natriuretic Peptide 121 pg/mL (Less than 100) H 08/08/17 03:30 Serum Total Protein 6.2 g/dL (6.4-8.9) L 08/09/17 03:52 Urine Clarity Cloudy (Clear) A 08/07/17 09:00 Ur Leukocyte Esterase Moderate (Negative) H 08/07/17 09:00 Urine Bacteria Moderate per hpf (None-Few) H 08/07/17 09:00 Ur Culture Indicated? YES (NO) A 08/07/17 09:00 H & H 08/09/17 Range/Units 03:52 Hgb 13.2 (11.5-15.4) g/dL Hct 40.4 (35.3-44.9) % All other labs normal. Consult Discharge Plan - Plan Referrals: Ryder Vicente Jr, MD [Primary Care Provider] -
[2017-08-09 15:47] VITALS: BP 138/84
--- NOTE | 2017-08-09 16:09 | Electrocardiograph Report ---
[place] [id number] Test Date: 2017-08-07 Pat Name: Nimo Delgadillo Department: 113 Room: 3B22 Gender: F Talent Development Coordinator: : 1940 Requested By: [id number] Order Number: [id number] Reading MD: Madhu Marquez Measurements Intervals [place] Rate: 78 P: 42 [place]: 146 QRS: -21 QRSD: 78 T: 4 QT: 360 QTc: 393 Interpretive Statements SINUS RHYTHM MODERATE VOLTAGE CRITERIA FOR LVH, CONSIDER NORMAL VARIANT POOR R WAVE PROGRESSION INFERIOR MYOCARDIAL INFARCTION, PROBABLY OLD Electronically Signed On 08-09-2017 16:08:09 EDT by Madhu Marquez
--- NOTE | 2017-08-09 17:35 | Internal Med Progress Note ---
Date of Encounter: 08/09/17 Time of Encounter: 17:33 - Assessment and plan (1) Frequent falls Current Visit: Yes Status: Acute Assessment and plan: Patient has a history of frequent falls over the past few weeks. According to her , she falls almost daily sometimes twice a day. He attempts to monitor her movements and assist her but is becoming increasingly difficult due to the increasing frequency of the falls. Her unsteady gait related to multiple factors including UTI, use of Xanax at home and toe deformities ( hammertoes) bilaterally. When gait was assessed it was apparent the patient was walking on her heels due to deformities in her toes. This is likely contributing to her balance difficulties. She has fallen during this admission on 08/08/17 oh attempting to get up to use the restroom. She has no complaints of pain at this time. Diagnostic imaging has been negative including CT of head , MRI of head, CT of C-spine. She was found to have an impacted acute radial neck fracture per x-ray prior to fall, no changes after fall. PT/OT consult noted very unsteady gait with postural sway even with static standing rectifying the patient is a high fall risk. Should benefit from SNF placement and at least short-term rehabilitation to improve safety and independence. Plan is to discharge this evening to [facility] (2) Unsteady gait Current Visit: Yes Status: Acute Assessment and plan: See assessment and plan above (3) UTI (urinary tract infection) Current Visit: Yes Status: Acute Assessment and plan: Patient diagnosed with UTI. Urinalysis on admission cloudy with moderate leukocyte esterase and moderate urine bacteria. Pulmonary cultures growing negative rods. She has been treated with Rocephin while inpatient. Discharge home with a course of ciprofloxacin Follow-up with PCP in one week Qualifiers: Urinary tract infection type: site unspecified Hematuria presence: without hematuria Qualified Code(s): N39.0 - Urinary tract infection, site not specified (4) Discoloration of skin of toe Current Visit: Yes Status: Acute Assessment and plan: Second toe of left foot discoloration,-purple in color. Vascular has been consult and BROOKS was completed and found to be normal. Pulses palpable 1+ bilaterally DP and PT. Podiatry ordered x-ray of left foot with attention to toe #2. Due to deformed toes the imaging is difficult to read however no fractures or inflammation identified (5) DVT prophylaxis Current Visit: Yes Status: Acute Assessment and plan: Continue SCD - Time Spent With Patient Total time spent is greater than 50% in coordination of care (as documented) at patient's floor/unit and/or counseling patient: - Subjective Interval history: Ms. Delgadillo is a 77 year old female who has anxiety GERD presenting emergency room for recurrent falls at home. Patient lives with , she has been falling over last 3 weeks, progressively getting worse. On 08/07/17 the patient had an unwitnessed fall while in the hospital. She has not fallen since . Continues to have generalized weakness and gait instability. - Constitutional Vitals: Temp Pulse Resp BP Pulse Ox 98.1 F 87 17 138/84 93 08/09/17 15:46 08/09/17 15:46 08/09/17 15:46 08/09/17 15:46 08/09/17 15:46 General appearance: Present: A&O X 3 - Head Head exam: Present: atraumatic, normocephalic - Eye Eye exam: Present: PERRL, conjuntiva pink, sclera anicteric Pupils: Present: PERRL - Respiratory Respiratory exam: Present: CTAB. Absent: accessory muscle use, rales, rhonchi, wheezes - Cardiovascular Cardiovascular exam: Present: RRR, +S1, +S2. Absent: diastolic murmur, gallop, rubs, systolic murmur - Extremities Exam Extremities exam: Present: warm, radial pulses palpable and symmetrical. Absent : calf tenderness, cyanotic, pedal edema - Neurological Exam Neurological exam: Present: CN II-XII intact, oriented X3, no focal deficits. Absent: pronater drift, facial droop, speech deficit - Skin Skin exam: Present: dry, intact Internal Medicine: Result - Labs CBC & Chem 7: 08/09/17 03:52 08/09/17 03:52 Labs: Short CBC 08/09/17 Range/Units 03:52 WBC 9.4 (4.3-11.1) K/mcL Hgb 13.2 (11.5-15.4) g/dL Hct 40.4 (35.3-44.9) % Plt Count 345 (140-400) K/mcL Neutrophils # 6.5 (1.6-8.9) K/mcL BMP 08/09/17 03:52 Sodium 136 Potassium 4.3 Chloride 103 Carbon Dioxide 25 BUN 17 Creatinine 0.83 Glucose 97 Calcium 8.8 Liver Function 08/09/17 Range/Units 03:52 Total Bilirubin 0.5 (0.3-1.0) mg/dL AST 14 (13-39) Units/L ALT 13 (7-52) Units/L Alkaline Phosphatase 72 (34-104) Units/L Albumin 3.6 (3.5-5.7) g/dL - ABG Interpretation ABG results: PT/INR, D-dimer PT 11.1 Seconds (9.4-12.1) 08/07/17 08:28 - Impressions Impressions Forearm X-Ray 08/07/17 22:13 IMPRESSION: Suspected impacted acute radial neck fracture. Osteopenia. D/ / 08/08/2017 07:03:05 Kimo Acosta MD / dianelys Interpreting Provider: Kimo Acosta MD Lumbar Spine MRI 08/08/17 12:00 IMPRESSION: 1. Edema within the anterior aspect of the L4 vertebral body without discrete fracture line. This may represent bone contusion in setting of trauma versus degenerative edema. If there is a concern for fracture, this can be correlated with CT examination. 2. Grade 2 anterolisthesis of L5 in relation to S1, secondary to chronic bilateral pars defects at L5. Associated moderate spinal canal stenosis and moderate bilateral neural foraminal stenosis. 3. Mild additional degenerative changes as detailed above. D/ / 08/08/2017 18:40:13 Edgardo Tejada MD / bcarter Interpreting Provider: Edgardo Tejada MD Thoracic Spine MRI 08/08/17 12:00 IMPRESSION: 1. No convincing evidence of acute injury within thoracic spine. No evidence of epidural hematoma or thoracic spinal cord compression. 2. Trace nonspecific bilateral pleural effusion. 3. Moderate thoracic kyphosis. D/ / 08/08/2017 18:42:08 Edgardo Tejada MD / bcarter Interpreting Provider: Edgardo Tejada MD Elbow X-Ray 08/08/17 17:45 IMPRESSION: Questionable subtle contour abnormality at the radial head/neck junction better visualized on the earlier forearm films suspicious for a nondisplaced fracture given a small anterior joint effusion. Otherwise exam is limited due to underlying osteopenia. D/ / 08/08/2017 18:20:11 Jazz Tejada MD / charlie Interpreting Provider: Jazz Tejada MD Echocardiogram 08/09/17 10:00 Impressions: LVEF 55-60%. Mild left ventricular diastolic dysfunction. Normal right ventricular structure and function. Mild mitral regurgitation. Mildly sclerotic aortic valve leaflets. No pulmonary hypertension. Left Ventricular Wall Motion: Rest Echo Findings All wall segments showed normal motion. Findings: Study Quality * Technically adequate exam. ECG Findings * Normal sinus rhythm. Left Ventricle * LVEF 55-60%. * Normal LV chamber size, wall thickness and function. * Mild left ventricular diastolic dysfunction. Right Ventricle * Normal right ventricular structure and function. Left Atrium * Normal left atrial size. Right Atrium * Normal right atrial size. Mitral Valve * Normal mitral valve structure. * No mitral stenosis. * Mild mitral regurgitation. Aortic Valve * No aortic regurgitation. * Trileaflet aortic valve. * Mildly sclerotic aortic valve leaflets. * No aortic stenosis. Tricuspid Valve * Tricuspid valve not well visualized. * No tricuspid regurgitation. Pulmonic Valve * Pulmonic valve is not well visualized. * No pulmonic stenosis. * Trace pulmonic regurgitation. Pulmonary Artery * Pulmonary artery not well visualized. Aorta * Normally sized aortic root. Pericardium * There is no pericardial effusion present. Interatrial Septum * Interatrial septum not well evaluated. IVC * The IVC is not well evaluated. Consult Discharge Plan - Plan Referrals: Ryder Vicente Jr, MD [Primary Care Provider] -
--- NOTE | 2017-08-09 17:51 | Discharge Summary ---
- NOTES TO OUTPATIENT PROVIDER Notes to Outpatient Provider: Patient admitted for generalized weakness and increasing frequent falls. She has been sent to rehabilitation to help regain additional functionality. She was noted to have UTI upon his admission was treated with Rocephin and discharged home on ciprofloxacin. Additionally, she was found to have a radial neck fracture of the right forearm, age indeterminate. She will benefit from follow-up x-ray. Ortho- consult regarding fracture and suggests that the patient continue to use the limb so that it does not get stiff however limit weightbearing activities. Patient has been not been informed that she needs to follow-up with PCP Date of Encounter: 08/09/17 Time of Encounter: 17:47 - Discharge Diagnosis (1) Frequent falls Priority: Primary Status: Acute Assessment and Plan: Patient has a history of frequent falls over the past few weeks. According to her , she falls almost daily sometimes twice a day. He attempts to monitor her movements and assist her but is becoming increasingly difficult due to the increasing frequency of the falls. Her unsteady gait related to multiple factors including UTI, use of Xanax at home and toe deformities ( hammertoes) bilaterally. When gait was assessed it was apparent the patient was walking on her heels due to deformities in her toes. This is likely contributing to her balance difficulties. She has fallen during this admission on 08/08/17 oh attempting to get up to use the restroom. She has no complaints of pain at this time. Diagnostic imaging has been negative including CT of head , MRI of head, CT of C-spine. She was found to have an impacted acute radial neck fracture per x-ray prior to fall, no changes after fall. PT/OT consult noted very unsteady gait with postural sway even with static standing rectifying the patient is a high fall risk. Should benefit from SNF placement and at least short-term rehabilitation to improve safety and independence. Plan is to discharge this evening to [facility]. Follow-up with orthopedics in 2-3 weeks (2) Unsteady gait Priority: Secondary Status: Acute Assessment and Plan: See assessment and plan above (3) UTI (urinary tract infection) Priority: Secondary Status: Acute Assessment and Plan: Patient diagnosed with UTI. Urinalysis on admission cloudy with moderate leukocyte esterase and moderate urine bacteria. Pulmonary cultures growing negative rods. She has been treated with Rocephin while inpatient. Discharge home with a course of ciprofloxacin Follow-up with PCP in one week Qualifiers: Urinary tract infection type: site unspecified Hematuria presence: without hematuria Qualified Code(s): N39.0 - Urinary tract infection, site not specified (4) Discoloration of skin of toe Priority: Secondary Status: Acute Assessment and Plan: Second toe of left foot discoloration,-purple in color. Vascular has been consult and BROOKS was completed and found to be normal. Pulses palpable 1+ bilaterally DP and PT. Podiatry ordered x-ray of left foot with attention to toe #2. Due to deformed toes the imaging is difficult to read however no fractures or inflammation identified (5) DVT prophylaxis Priority: Secondary Status: Acute Hospital course: Ms. Delagdillo is a 77 year old female Discharge discussed with: patient, family, nurse, social work, case management Time spent discussing smoking cessation with patient: more than 10 minutes - Time Spent with Patient Total time spent providing and/or coordinating discharge services: Greater than 30 minutes - Discharge Medications Home Medications: ALPRAZolam [Xanax 0.25 MG Tablet] 0.25 mg PO QID 08/07/17 [History] Pantoprazole Sodium [Protonix] 40 mg PO DAILY 08/07/17 [History] Ciprofloxacin [Cipro] 500 mg PO BID 7 Days #14 tablet 08/09/17 [Rx] Allergies/Adverse Reactions: 3 Allergy/AdvReac Type Severity Reaction Status Date / Time No Known Allergies Allergy Verified 08/07/17 09:09 Date of admission: 08/07/17 09:48 Primary care physician: Ryder Vicente Jr, MD Consults: 08/07/17 11:28 Consult to [facility] [CONS] Routine Reason for SW Consult: frequent falls, possible snf or home health 08/07/17 11:55 Consult to Occupational Therapy [CONS] Routine Comment: Evaluate, develop and implement POC Reason for Consult: fall Does patient have active BEDREST order?: No Is patient medically & hemodynamically stable?: Yes Patient assessed for mobility or mobilized this visit?: Yes Consult to Physical Therapy [CONS] Routine Comment: Evaluate, develop and implement POC Reason for Consult: fall Does patient have active BEDREST order?: No Is patient medically & hemodynamically stable?: Yes Patient assessed for mobility or mobilized this visit?: Yes 08/07/17 23:24 Consult to [facility] [CONS] Routine Reason for SW Consult: Pt. fell last night from bed. Please assess pt. and for possible need for placement (short-term or long-term)/rehabilitation d /t instability and increasing falls risk. 08/08/17 00:44 Consult to Orthopedic Surgery [CONS] Routine Consulting Provider: [facility] Reason for Consult: Radial neck fracture Call Completed: No 08/08/17 19:48 Consult to Podiatry [CONS] Routine Consulting Provider: [facility] Reason for Consult: Discolored toe Call Completed: Yes Discharging clinician: Huber Menchaca Anticipated date of discharge: 08/09/17 - Constitutional Vitals: Temp Pulse Resp BP Pulse Ox 98.1 F 87 17 138/84 93 08/09/17 15:46 08/09/17 15:46 08/09/17 15:46 08/09/17 15:46 08/09/17 15:46 General appearance: Present: A&O X 3 - Head Head exam: Present: atraumatic, normocephalic - Eye Eye exam: Present: PERRL, conjuntiva pink, sclera anicteric Pupils: Present: PERRL - Neck Neck exam general surgery: Present: supple, trachea midline. Absent: lymphadenopathy - Respiratory Respiratory exam: Present: CTAB. Absent: accessory muscle use, rales, rhonchi, wheezes - Cardiovascular Cardiovascular exam: Present: RRR, +S1, +S2. Absent: diastolic murmur, gallop, rubs, systolic murmur - GI/Abdominal GI/Abdominal exam: Present: normal bowel sounds, soft, no peritoneal signs. Absent: distended, tenderness - Extremities Exam Extremities exam: Present: warm, radial pulses palpable and symmetrical. Absent : calf tenderness, cyanotic, normal inspection, pedal edema - Expanded Lower Extremities Exam Foot/Toe exam: Present: deformity (Hammertoes bilaterally, ecchymosis noted on left foot second toe) - Neurological Exam Neurological exam: Present: CN II-XII intact, oriented X3, no focal deficits. Absent: pronater drift, facial droop, speech deficit - Skin Skin exam: Present: dry, intact - Patient Status Disposition: Transfer Inpatient Rehab Fac Condition: Good Overall status at discharge: patient is not back to baseline - Discharge Instructions Follow Up With: Ryder Vicente Jr, MD [Primary Care Provider] -
--- NOTE | 2017-08-09 18:22 | Physician Discharge Referral ---
ExtendedCare Referral Info Transfer To: [facility] Provider in Charge after Transfer: Other (Supervising provider at [facility]) Institutional Level of Care: Skilled - Diagnosis (1) Frequent falls Priority: Primary Status: Acute (2) Unsteady gait Priority: Secondary Status: Acute (3) UTI (urinary tract infection) Priority: Secondary Status: Acute (4) Discoloration of skin of toe Priority: Secondary Status: Acute (5) DVT prophylaxis Priority: Secondary Status: Acute Prognosis: Fair Aware of Diagnosis: Patient, Family Aware of Prognosis: Patient, Family - Transfer Medications Prescriptions: ALPRAZolam [Xanax 0.25 MG Tablet] 0.25 mg PO Q8HR PRN 30 Days #90 tab PRN Reason: Anxiety Ciprofloxacin [Cipro] 500 mg PO BID 7 Days #14 tablet Home Medications: ALPRAZolam [Xanax 0.25 MG Tablet] 0.25 mg PO QID 08/07/17 [History] Pantoprazole Sodium [Protonix] 40 mg PO DAILY 08/07/17 [History] ALPRAZolam [Xanax 0.25 MG Tablet] 0.25 mg PO Q8HR PRN 30 Days #90 tab 08/09/17 [ Rx] Ciprofloxacin [Cipro] 500 mg PO BID 7 Days #14 tablet 08/09/17 [Rx] Allergies/Adverse Reactions: 3 Allergy/AdvReac Type Severity Reaction Status Date / Time No Known Allergies Allergy Verified 08/07/17 09:09 - Respiratory Orders Smoking Cessation: Smoking cessation has been advised. For more information, call the [place] Tobacco Quit Line at 7-453-TMUJ-NOW. - Mobility Orders Other (With assist only using assistive devices such as walker, gait belt and/or /Rollator) - Rehabiliation Orders Rehab Potential: Fair - Diet Orders Regular CERTIFICATION: I certify that the transfer of the above named patient to an Extended Care Facility is necessary for the continuing treatment of the diagnosis listed. The above information is true and accurate reflection of patient's current condition. Confidential - Redisclosure prohibited without a patient's written consent.
== END 2017-08-09 18:50 ==
LOC: 3BNU 07:40 → EMEROO 07:40 → 3BNU 10:40
PROVIDERS: ADMIT Hospitalist; ATTEND Hospitalist

== ENCOUNTER 2020-03-19 05:44 | Inpatient (IN) ==
[2020-03-19] MEDS ORDERED: Isovue-370 500 ML BOTTLE IVP ONE (05:54)
[2020-03-19] MEDS ORDERED: Tdap (Boostrix) Vaccine 0.5 ML SYRINGE IM ONE (05:56)
[2020-03-19 06:36] LABS: Basophils % 0.3 %; Eosinophils % 0.2 %; Hematocrit 46.1 % (35.3-44.9); Hemoglobin 14.7 g/dL (11.5-15.4); Immature Granulocytes % 0.9 % (0-4); Lymphocytes # 0.8 K/mcL (0.6-4.6); Lymphocytes % 5.3 %; Mean Corpuscular HGB Conc 31.9 g/dL (31.6-35.5); Mean Corpuscular Hemoglobin 29.5 pg (28.0-33.3); Mean Corpuscular Volume 92.6 fL (83.0-100.0); Mean Platelet Volume 10.4 fL (9.4-12.4); Monocytes # 0.9 K/mcL (0.0-1.3); Neutrophils # 12.7 K/mcL (1.6-8.9); Platelet Count 343 K/mcL (140-400); Red Blood Count 4.98 M/mcL (3.82-4.97); Red Cell Distribution Width 14.6 % (11.5-14.5); Segmented Neutrophils % 87.3 %; White Blood Count 14.5 K/mcL (4.3-11.1)
[2020-03-19] MEDS ORDERED: 0.9 % Sodium Chloride 500 ML IVC ONE (06:41)
[2020-03-19 06:53] LABS: Bilirubin,Urine Small (Negative); Blood,Urine Moderate (Negative); Clarity,Urine Clear (Clear); Color,Urine Yellow (Yellow); Glucose,Urine (UA) Normal (Normal); Ketones,Urine Negative (Negative); Leukocyte Esterase,Urine Negative (Negative); Nitrite,Urine Negative (Negative); PH,Urine 5.5 pH Units (5.0-8.0); Protein,Urine 100 mg/dL (Neg-Trace); Specific Gravity,Urine 1.025 (1.010-1.025); Urobilinogen,Urine Normal (Normal)
[2020-03-19 06:56] LABS: Calcium 9.1 mg/dL (8.6-10.3); Potassium 3.3 mEq/L (3.5-5.1)
[2020-03-19] MEDS ORDERED: Potassium Chloride 20 MEQ, Lidocaine 1% 2 ML in 0.9 % Sodium Chloride 250 ML IVPB ONE (06:59)
[2020-03-19 07:00] LABS: Troponin I 0.07 ng/mL (< 0.04)
[2020-03-19 07:05] LABS: Hyaline Casts,Urine Few per lpf (None Seen); RBC,Urine 0-3 per hpf (0-3); WBC,Urine 0-3 per hpf (0-3)
[2020-03-19] MEDS ORDERED: dexAMETHasone 4 MG TABLET PO STA (07:20)
[2020-03-19] MEDS ORDERED: Naloxone 0.4 MG/ML INJ IVP PRN (08:42)
[2020-03-19 11:15] LABS: INR 1.2; Prothrombin Time 13.4 Seconds (9.4-12.1)
[2020-03-19] MEDS ORDERED: Ipratropium 1 PUFF INHALER IH PRN (12:32)
[2020-03-19] MEDS: 0.9 % Sodium Chloride 1,000 ML IVC SCH (15:11)
[2020-03-19] MEDS: cefTRIAXone 2,000 MG in Water for inj. (sterile) 20 ML IVP SCH (15:11)
[2020-03-19] MEDS: Azithromycin 500 MG in 0.9 % Sodium Chloride 250 ML IVPB SCH (15:12)
[2020-03-20] MEDS: *HR* Enoxaparin 30 MG/0.3 ML SYRINGE SQ SCH (04:51)
[2020-03-20] MEDS: 0.9 % Sodium Chloride 1,000 ML IVC SCH (04:52)
[2020-03-20] MEDS ORDERED: Acetaminophen 325 MG TABLET PO PRN (05:38)
[2020-03-20 05:41] LABS: Basophils # 0.1 K/mcL (0.0-0.2); Basophils % 0.5 %; Hemoglobin 14.1 g/dL (11.5-15.4); Lymphocytes # 0.8 K/mcL (0.6-4.6); Lymphocytes % 5.4 %; Mean Corpuscular Volume 96.5 fL (83.0-100.0); Mean Platelet Volume 10.4 fL (9.4-12.4); Monocytes # 0.5 K/mcL (0.0-1.3); Monocytes % 3.5 %; Neutrophils # 13.2 K/mcL (1.6-8.9); Nucleated Red Blood Cells 0.3 /100 WBC (0); Platelet Count 352 K/mcL (140-400); Red Blood Count 4.87 M/mcL (3.82-4.97); Red Cell Distribution Width 14.9 % (11.5-14.5); Segmented Neutrophils % 88.6 %; White Blood Count 14.9 K/mcL (4.3-11.1)
[2020-03-20 05:57] LABS: BUN/Creatinine Ratio 38 (6-26); Blood Urea Nitrogen 33 mg/dL (8-23); Calcium 8.5 mg/dL (8.6-10.3); Carbon Dioxide 26 mEq/L (23-29); Chloride 121 mEq/L (98-107); Glucose 99 mg/dL (70-105); Osmolality,Calculated 331 (280-300); Potassium 3.6 mEq/L (3.5-5.1); Sodium 157 mEq/L (136-145); eGFR For African Americans > 60 (> 60); eGFR For Non-African Americans > 60 (> 60)
[2020-03-20] MEDS: Dexamethasone 4 MG/ML VIAL IVP SCH (09:30)
[2020-03-20] MEDS: D5% in Water 1,000 ML IVC SCH ×2 (09:31→23:29)
[2020-03-20] MEDS: cefTRIAXone 2,000 MG in Water for inj. (sterile) 20 ML IVP SCH (15:31)
[2020-03-20] MEDS: Azithromycin 500 MG in 0.9 % Sodium Chloride 250 ML IVPB SCH (15:31)
[2020-03-21] MEDS: *HR* Enoxaparin 30 MG/0.3 ML SYRINGE SQ SCH (05:01)
[2020-03-21] MEDS: Dexamethasone 4 MG/ML VIAL IVP SCH (07:51)
[2020-03-21] MEDS ORDERED: D5% in Water 1,000 ML IVC SCH (09:30)
[2020-03-21 10:20] LABS: Basophils # 0.1 K/mcL (0.0-0.2); Basophils % 0.4 %; Eosinophils % 0.2 %; Hematocrit 40.9 % (35.3-44.9); Immature Granulocytes % 2.3 % (0-4); Lymphocytes # 0.6 K/mcL (0.6-4.6); Lymphocytes % 3.3 %; Mean Corpuscular HGB Conc 31.8 g/dL (31.6-35.5); Mean Corpuscular Hemoglobin 30.3 pg (28.0-33.3); Mean Corpuscular Volume 95.3 fL (83.0-100.0); Mean Platelet Volume 10.2 fL (9.4-12.4); Monocytes # 0.5 K/mcL (0.0-1.3); Monocytes % 2.7 %; Neutrophils # 16.2 K/mcL (1.6-8.9); Nucleated Red Blood Cells 0.1 /100 WBC (0); Platelet Count 354 K/mcL (140-400); Red Blood Count 4.29 M/mcL (3.82-4.97); Red Cell Distribution Width 14.8 % (11.5-14.5); Segmented Neutrophils % 91.1 %; White Blood Count 17.7 K/mcL (4.3-11.1)
[2020-03-21 11:07] LABS: BUN/Creatinine Ratio 27 (6-26); Blood Urea Nitrogen 24 mg/dL (8-23); Calcium 7.8 mg/dL (8.6-10.3); Carbon Dioxide 27 mEq/L (23-29); Chloride 112 mEq/L (98-107); Glucose 176 mg/dL (70-105); Osmolality,Calculated 310 (280-300); Potassium 3.1 mEq/L (3.5-5.1); Sodium 146 mEq/L (136-145); eGFR For African Americans > 60 (> 60); eGFR For Non-African Americans > 60 (> 60)
[2020-03-21] MEDS ORDERED: Potassium Chloride Elixir 20 MEQ/15 ML UDC PO ONE (11:24)
[2020-03-21 13:17] LABS: Alanine Aminotransferase 19 Units/L (7-52); Albumin 2.7 g/dL (3.5-5.7); Albumin/Globulin Ratio 0.9 (1.1-2.2); Alkaline Phosphatase 58 Units/L (34-104); Aspartate Amino Transferase 28 Units/L (13-39); Bilirubin,Direct 0.1 mg/dL (0.0-0.2); Bilirubin,Indirect 0.3 mg/dL (0.0-1.0); Bilirubin,Total 0.4 mg/dL (0.3-1.0); Ferritin 254 ng/mL (10-120); Lactate Dehydrogenase 388 Units/L (140-271); Total Protein 5.7 g/dL (6.4-8.9)
[2020-03-21] MEDS: cefTRIAXone 2,000 MG in Water for inj. (sterile) 20 ML IVP SCH (14:41)
[2020-03-21] MEDS: Azithromycin 500 MG in 0.9 % Sodium Chloride 250 ML IVPB SCH (14:42)
[2020-03-21] MEDS ORDERED: Remdesivir 200 MG in 0.9 % Sodium Chloride 100 ML IVPB ONE (17:00)
[2020-03-21 17:13] LABS: C-Reactive Protein 214 mg/L (Less than 10)
[2020-03-21 17:56] LABS: Adenovirus F 40/41 PCR Not detected (Not detect); Astrovirus PCR Not detected (Not detect); C.difficile Toxin A/B Gene PCR Not detected (Not detect); Campylobacter by PCR Not detected (Not detect); Cryptosporidium by PCR Not detected (Not detect); Cyclospora cayetanensis PCR Not detected (Not detect); E. coli O157 by PCR Not detected (Not detect); Entamoeba histolytica PCR Not detected (Not detect); Enteroaggregative E.coli(EAEC) Not detected (Not detect); Enteropathogenic E.coli(EPEC) Not detected (Not detect); Enterotoxigenic E.coli (ETEC) Not detected (Not detect); Giardia lamblia PCR Not detected (Not detect); Norovirus GI/GII PCR Not detected (Not detect); Plesiomonas shigelloides PCR Not detected (Not detect); Rotavirus A PCR Not detected (Not detect); Salmonella PCR Not detected (Not detect); Sapovirus PCR Not detected (Not detect); Shig/EnteroinvasiveE coli EIEC Not detected (Not detect); Shigalike tox-prod E coli STEC Not detected (Not detect); Vibrio PCR Not detected (Not detect); Vibrio cholerae PCR Not detected (Not detect); Yersinia enterocolitica PCR Not detected (Not detect)
[2020-03-22] MEDS: *HR* Enoxaparin 30 MG/0.3 ML SYRINGE SQ SCH (05:36)
[2020-03-22] MEDS ORDERED: *HR* LORazepam 2 MG/ML VIAL IVP ONE (06:05)
[2020-03-22 07:23] LABS: Basophils # 0.1 K/mcL (0.0-0.2); Basophils % 0.6 %; Eosinophils % 0.2 %; Hematocrit 43.8 % (35.3-44.9); Hemoglobin 14.1 g/dL (11.5-15.4); Immature Granulocytes % 2.6 % (0-4); Lymphocytes # 0.8 K/mcL (0.6-4.6); Lymphocytes % 4.7 %; Mean Corpuscular HGB Conc 32.2 g/dL (31.6-35.5); Mean Corpuscular Hemoglobin 30.3 pg (28.0-33.3); Mean Corpuscular Volume 94.2 fL (83.0-100.0); Mean Platelet Volume 10.9 fL (9.4-12.4); Monocytes # 0.7 K/mcL (0.0-1.3); Monocytes % 4.4 %; Neutrophils # 14.6 K/mcL (1.6-8.9); Platelet Count 388 K/mcL (140-400); Red Blood Count 4.65 M/mcL (3.82-4.97); Red Cell Distribution Width 14.9 % (11.5-14.5); Segmented Neutrophils % 87.5 %; White Blood Count 16.7 K/mcL (4.3-11.1)
[2020-03-22] MEDS: Dexamethasone 4 MG/ML VIAL IVP SCH (08:03)
[2020-03-22] MEDS: Acetaminophen 325 MG TABLET PO PRN (08:05)
[2020-03-22 08:16] LABS: BUN/Creatinine Ratio 31 (6-26); Blood Urea Nitrogen 26 mg/dL (8-23); Carbon Dioxide 24 mEq/L (23-29); Chloride 113 mEq/L (98-107); Glucose 64 mg/dL (70-105); Osmolality,Calculated 309 (280-300); Potassium 4.4 mEq/L (3.5-5.1); Sodium 148 mEq/L (136-145); eGFR For African Americans > 60 (> 60); eGFR For Non-African Americans > 60 (> 60)
[2020-03-22 08:17] LABS: Bilirubin,Direct 0.1 mg/dL (0.0-0.2); Bilirubin,Indirect 0.2 mg/dL (0.0-1.0); Bilirubin,Total 0.3 mg/dL (0.3-1.0); Globulin 3.1 g/dL (2.4-3.5); Total Protein 6.1 g/dL (6.4-8.9)
[2020-03-22] MEDS ORDERED: Furosemide 20 MG TABLET PO SCH (09:00)
[2020-03-22 10:00] LABS: INR 1.3; Prothrombin Time 15.3 Seconds (9.4-12.1)
[2020-03-22] MEDS ORDERED: D5% in Water 1,000 ML IVC SCH (13:30)
[2020-03-22] MEDS: Nystatin SUSP 5 ML UD.LIQ PO SCH ×3 (14:04→20:33)
[2020-03-22] MEDS: cefTRIAXone 2,000 MG in Water for inj. (sterile) 20 ML IVP SCH (14:04)
[2020-03-22] MEDS: Remdesivir 100 MG in 0.9 % Sodium Chloride 100 ML IVPB SCH (17:01)
[2020-03-22] MEDS: Doxycycline 100 MG in 0.9 % Sodium Chloride Mini Bag 100 ML IVPB SCH (18:27)
[2020-03-23] MEDS: *HR* Enoxaparin 30 MG/0.3 ML SYRINGE SQ SCH (05:41)
[2020-03-23] MEDS: Doxycycline 100 MG in 0.9 % Sodium Chloride Mini Bag 100 ML IVPB SCH ×2 (05:42→18:21)
[2020-03-23] MEDS: Dexamethasone 4 MG/ML VIAL IVP SCH (09:10)
[2020-03-23] MEDS: Nystatin SUSP 5 ML UD.LIQ PO SCH ×4 (09:10→21:11)
[2020-03-23 14:18] LABS: Hematocrit 47.5 % (35.3-44.9); Immature Granulocytes % 2.7 % (0-4); Lymphocytes # 0.6 K/mcL (0.6-4.6); Lymphocytes % 2.9 %; Mean Corpuscular HGB Conc 31.6 g/dL (31.6-35.5); Mean Corpuscular Volume 91.7 fL (83.0-100.0); Mean Platelet Volume 10.7 fL (9.4-12.4); Monocytes # 0.7 K/mcL (0.0-1.3); Monocytes % 3.3 %; Platelet Count 363 K/mcL (140-400); Red Blood Count 5.18 M/mcL (3.82-4.97); Red Cell Distribution Width 14.9 % (11.5-14.5); Segmented Neutrophils % 91.1 %; White Blood Count 21.9 K/mcL (4.3-11.1)
[2020-03-23 14:28] LABS: Alanine Aminotransferase 18 Units/L (7-52); Albumin 2.8 g/dL (3.5-5.7); Albumin/Globulin Ratio 0.8 (1.1-2.2); Alkaline Phosphatase 74 Units/L (34-104); Aspartate Amino Transferase 25 Units/L (13-39); BUN/Creatinine Ratio 38 (6-26); Bilirubin,Total 0.4 mg/dL (0.3-1.0); Blood Urea Nitrogen 34 mg/dL (8-23); C-Reactive Protein 197 mg/L (Less than 10); Calcium 7.7 mg/dL (8.6-10.3); Carbon Dioxide 23 mEq/L (23-29); Chloride 111 mEq/L (98-107); Globulin 3.4 g/dL (2.4-3.5); Glucose 227 mg/dL (70-105); Lactate Dehydrogenase 490 Units/L (140-271); Osmolality,Calculated 317 (280-300); Potassium 3.4 mEq/L (3.5-5.1); Sodium 146 mEq/L (136-145); Total Protein 6.2 g/dL (6.4-8.9); eGFR For African Americans > 60 (> 60); eGFR For Non-African Americans > 60 (> 60)
[2020-03-23 14:39] LABS: INR 7.4; Prothrombin Time 80.7 Seconds (9.4-12.1)
[2020-03-23] MEDS ORDERED: Potassium Chloride Elixir 20 MEQ/15 ML UDC PO ONE (14:43)
[2020-03-23] MEDS: cefTRIAXone 2,000 MG in Water for inj. (sterile) 20 ML IVP SCH (16:55)
[2020-03-23] MEDS: Remdesivir 100 MG in 0.9 % Sodium Chloride 100 ML IVPB SCH (16:56)
[2020-03-23 21:59] LABS: INR 1.4; Prothrombin Time 16.3 Seconds (9.4-12.1)
[2020-03-23] MEDS ORDERED: 0.9 % Sodium Chloride 250 ML ONE (23:17)
[2020-03-24] MEDS: Doxycycline 100 MG in 0.9 % Sodium Chloride Mini Bag 100 ML IVPB SCH (06:16)
[2020-03-24] MEDS: *HR* Enoxaparin 30 MG/0.3 ML SYRINGE SQ SCH (06:18)
[2020-03-24] MEDS: Nystatin SUSP 5 ML UD.LIQ PO SCH ×4 (08:00→19:17)
[2020-03-24 11:58] LABS: INR 1.5
[2020-03-24 12:10] LABS: Basophils # 0.1 K/mcL (0.0-0.2); Basophils % 0.7 %; Hematocrit 43.2 % (35.3-44.9); Hemoglobin 13.9 g/dL (11.5-15.4); Lymphocytes # 0.7 K/mcL (0.6-4.6); Lymphocytes % 3.7 %; Mean Corpuscular HGB Conc 32.2 g/dL (31.6-35.5); Mean Corpuscular Hemoglobin 28.8 pg (28.0-33.3); Mean Corpuscular Volume 89.6 fL (83.0-100.0); Mean Platelet Volume 11.4 fL (9.4-12.4); Monocytes # 0.7 K/mcL (0.0-1.3); Monocytes % 4.1 %; Neutrophils # 15.9 K/mcL (1.6-8.9); Nucleated Red Blood Cells 0.1 /100 WBC (0); Platelet Count 386 K/mcL (140-400); Red Blood Count 4.82 M/mcL (3.82-4.97); Red Cell Distribution Width 14.7 % (11.5-14.5); Segmented Neutrophils % 88.5 %
[2020-03-24 12:12] LABS: Alanine Aminotransferase 16 Units/L (7-52); Albumin 2.7 g/dL (3.5-5.7); Albumin/Globulin Ratio 0.9 (1.1-2.2); Alkaline Phosphatase 70 Units/L (34-104); Aspartate Amino Transferase 25 Units/L (13-39); BUN/Creatinine Ratio 49 (6-26); Bilirubin,Total 0.4 mg/dL (0.3-1.0); Blood Urea Nitrogen 35 mg/dL (8-23); Calcium 7.8 mg/dL (8.6-10.3); Carbon Dioxide 20 mEq/L (23-29); Chloride 117 mEq/L (98-107); Globulin 3.1 g/dL (2.4-3.5); Glucose 103 mg/dL (70-105); Osmolality,Calculated 320 (280-300); Potassium 3.6 mEq/L (3.5-5.1); Sodium 151 mEq/L (136-145); Total Protein 5.8 g/dL (6.4-8.9); eGFR For African Americans > 60 (> 60); eGFR For Non-African Americans > 60 (> 60)
[2020-03-24] MEDS: Dexamethasone 4 MG/ML VIAL IVP SCH (12:15)
[2020-03-24] MEDS: D5% in Water 1,000 ML IVC SCH (15:26)
[2020-03-24] MEDS: cefTRIAXone 2,000 MG in Water for inj. (sterile) 20 ML IVP SCH (17:42)
[2020-03-24] MEDS: Remdesivir 100 MG in 0.9 % Sodium Chloride 100 ML IVPB SCH (17:47)
[2020-03-24] MEDS: Doxycycline 100 MG CAPSULE PO SCH (19:17)
[2020-03-25] MEDS: Doxycycline 100 MG CAPSULE PO SCH ×2 (09:56→20:27)
[2020-03-25] MEDS: *HR* Enoxaparin 30 MG/0.3 ML SYRINGE SQ SCH (09:56)
[2020-03-25] MEDS: Dexamethasone 4 MG/ML VIAL IVP SCH (09:57)
[2020-03-25] MEDS: Nystatin SUSP 5 ML UD.LIQ PO SCH ×4 (10:35→20:27)
[2020-03-25] MEDS: D5% in Water 1,000 ML IVC SCH (13:19)
[2020-03-25 16:34] LABS: INR 1.4; Prothrombin Time 15.5 Seconds (9.4-12.1)
[2020-03-25 16:42] LABS: Basophils # 0.2 K/mcL (0.0-0.2); Basophils % 0.9 %; Hematocrit 45.6 % (35.3-44.9); Hemoglobin 14.6 g/dL (11.5-15.4); Immature Granulocytes % 3.8 % (0-4); Lymphocytes # 0.4 K/mcL (0.6-4.6); Lymphocytes % 2.1 %; Mean Corpuscular Hemoglobin 30.1 pg (28.0-33.3); Mean Platelet Volume 11.3 fL (9.4-12.4); Monocytes # 0.4 K/mcL (0.0-1.3); Monocytes % 2.2 %; Neutrophils # 17.6 K/mcL (1.6-8.9); Platelet Count 342 K/mcL (140-400); Red Blood Count 4.85 M/mcL (3.82-4.97); Red Cell Distribution Width 14.6 % (11.5-14.5); White Blood Count 19.3 K/mcL (4.3-11.1)
[2020-03-25 17:13] LABS: Alanine Aminotransferase 18 Units/L (7-52); Albumin 2.8 g/dL (3.5-5.7); Albumin/Globulin Ratio 0.8 (1.1-2.2); Alkaline Phosphatase 82 Units/L (34-104); Aspartate Amino Transferase 28 Units/L (13-39); BUN/Creatinine Ratio 46 (6-26); Bilirubin,Total 0.4 mg/dL (0.3-1.0); Blood Urea Nitrogen 32 mg/dL (8-23); Calcium 8.1 mg/dL (8.6-10.3); Carbon Dioxide 27 mEq/L (23-29); Chloride 116 mEq/L (98-107); Globulin 3.4 g/dL (2.4-3.5); Glucose 155 mg/dL (70-105); Osmolality,Calculated 326 (280-300); Potassium 3.4 mEq/L (3.5-5.1); Sodium 153 mEq/L (136-145); Total Protein 6.2 g/dL (6.4-8.9); eGFR For African Americans > 60 (> 60); eGFR For Non-African Americans > 60 (> 60)
[2020-03-25] MEDS: cefTRIAXone 2,000 MG in Water for inj. (sterile) 20 ML IVP SCH (17:35)
[2020-03-25] MEDS: Remdesivir 100 MG in 0.9 % Sodium Chloride 100 ML IVPB SCH (18:03)
[2020-03-26] MEDS: *HR* Enoxaparin 30 MG/0.3 ML SYRINGE SQ SCH (06:37)
[2020-03-26 06:54] LABS: Alanine Aminotransferase 20 Units/L (7-52); Albumin 2.6 g/dL (3.5-5.7); Albumin/Globulin Ratio 0.8 (1.1-2.2); Alkaline Phosphatase 83 Units/L (34-104); Aspartate Amino Transferase 28 Units/L (13-39); BUN/Creatinine Ratio 53 (6-26); Bilirubin,Total 0.4 mg/dL (0.3-1.0); Blood Urea Nitrogen 35 mg/dL (8-23); Calcium 8.1 mg/dL (8.6-10.3); Carbon Dioxide 24 mEq/L (23-29); Chloride 121 mEq/L (98-107); Globulin 3.2 g/dL (2.4-3.5); Glucose 129 mg/dL (70-105); Osmolality,Calculated 332 (280-300); Potassium 3.4 mEq/L (3.5-5.1); Sodium 156 mEq/L (136-145); Total Protein 5.8 g/dL (6.4-8.9); eGFR For African Americans > 60 (> 60); eGFR For Non-African Americans > 60 (> 60)
[2020-03-26] MEDS: Nystatin SUSP 5 ML UD.LIQ PO SCH ×4 (07:38→19:38)
[2020-03-26] MEDS: Doxycycline 100 MG CAPSULE PO SCH (07:38)
[2020-03-26] MEDS: Dexamethasone 4 MG/ML VIAL IVP SCH (07:38)
[2020-03-26 10:49] LABS: Hematocrit 44.2 % (35.3-44.9); Hemoglobin 13.9 g/dL (11.5-15.4); Immature Granulocytes % 4.1 % (0-4); Lymphocytes # 0.5 K/mcL (0.6-4.6); Lymphocytes % 2.2 %; Mean Corpuscular HGB Conc 31.4 g/dL (31.6-35.5); Mean Corpuscular Hemoglobin 29.1 pg (28.0-33.3); Mean Corpuscular Volume 92.5 fL (83.0-100.0); Mean Platelet Volume 11.8 fL (9.4-12.4); Monocytes # 0.7 K/mcL (0.0-1.3); Monocytes % 2.9 %; Platelet Count 328 K/mcL (140-400); Red Blood Count 4.78 M/mcL (3.82-4.97); Red Cell Distribution Width 14.7 % (11.5-14.5); Segmented Neutrophils % 90.8 %; White Blood Count 23.1 K/mcL (4.3-11.1)
[2020-03-26 10:52] LABS: INR 1.4; Prothrombin Time 16.4 Seconds (9.4-12.1)
[2020-03-26] MEDS ORDERED: hydrALAZINE 25 MG TABLET PO ONE (12:59)
[2020-03-26] MEDS ORDERED: D5% in Water 1,000 ML IVC SCH ×2 (13:00→21:33)
[2020-03-26] MEDS: hydrALAZINE 25 MG TABLET PO SCH (17:27)
[2020-03-26] MEDS: amLODIPine 5 MG TABLET PO SCH (17:27)
[2020-03-26 20:31] LABS: BUN/Creatinine Ratio 53 (6-26); Blood Urea Nitrogen 36 mg/dL (8-23); Calcium 7.7 mg/dL (8.6-10.3); Carbon Dioxide 24 mEq/L (23-29); Chloride 117 mEq/L (98-107); Glucose 321 mg/dL (70-105); Osmolality,Calculated 329 (280-300); Potassium 4.2 mEq/L (3.5-5.1); Sodium 149 mEq/L (136-145); eGFR For African Americans > 60 (> 60); eGFR For Non-African Americans > 60 (> 60)
[2020-03-27] MEDS: hydrALAZINE 25 MG TABLET PO SCH ×3 (00:05→17:00)
[2020-03-27] MEDS: *HR* Enoxaparin 40 MG/0.4 ML SYRINGE SQ SCH (06:17)
[2020-03-27 10:37] LABS: Basophils % 0.1 %; Hematocrit 41.7 % (35.3-44.9); Hemoglobin 13.2 g/dL (11.5-15.4); Lymphocytes # 0.7 K/mcL (0.6-4.6); Lymphocytes % 2.5 %; Mean Corpuscular HGB Conc 31.7 g/dL (31.6-35.5); Mean Corpuscular Hemoglobin 29.2 pg (28.0-33.3); Mean Corpuscular Volume 92.3 fL (83.0-100.0); Monocytes # 0.7 K/mcL (0.0-1.3); Monocytes % 2.5 %; Neutrophils # 24.1 K/mcL (1.6-8.9); Platelet Count 260 K/mcL (140-400); Red Blood Count 4.52 M/mcL (3.82-4.97); Red Cell Distribution Width 14.9 % (11.5-14.5); Segmented Neutrophils % 90.9 %; White Blood Count 26.5 K/mcL (4.3-11.1)
[2020-03-27 10:46] LABS: INR 1.4; Prothrombin Time 16.3 Seconds (9.4-12.1)
[2020-03-27 10:53] LABS: Alanine Aminotransferase 23 Units/L (7-52); Albumin 2.5 g/dL (3.5-5.7); Albumin/Globulin Ratio 0.8 (1.1-2.2); Alkaline Phosphatase 76 Units/L (34-104); Aspartate Amino Transferase 29 Units/L (13-39); BUN/Creatinine Ratio 57 (6-26); Bilirubin,Total 0.5 mg/dL (0.3-1.0); Blood Urea Nitrogen 36 mg/dL (8-23); Carbon Dioxide 23 mEq/L (23-29); Chloride 120 mEq/L (98-107); Globulin 3.1 g/dL (2.4-3.5); Glucose 165 mg/dL (70-105); Osmolality,Calculated 328 (280-300); Potassium 3.9 mEq/L (3.5-5.1); Sodium 153 mEq/L (136-145); Total Protein 5.6 g/dL (6.4-8.9); eGFR For African Americans > 60 (> 60); eGFR For Non-African Americans > 60 (> 60)
[2020-03-27 11:14] LABS: Platelet Estimate Normal (Normal)
[2020-03-27] MEDS: Nystatin SUSP 5 ML UD.LIQ PO SCH ×4 (12:28→20:07)
[2020-03-27] MEDS: Aspirin 81 MG TAB.CHEW PO SCH (12:29)
[2020-03-27] MEDS: amLODIPine 5 MG TABLET PO SCH (12:29)
[2020-03-27] MEDS: D5% in Water 1,000 ML IVC SCH ×2 (17:00→20:08)
[2020-03-27 19:04] LABS: BUN/Creatinine Ratio 48 (6-26); Blood Urea Nitrogen 32 mg/dL (8-23); Calcium 7.9 mg/dL (8.6-10.3); Carbon Dioxide 25 mEq/L (23-29); Chloride 116 mEq/L (98-107); Glucose 216 mg/dL (70-105); Osmolality,Calculated 323 (280-300); Potassium 3.8 mEq/L (3.5-5.1); Sodium 150 mEq/L (136-145); eGFR For African Americans > 60 (> 60); eGFR For Non-African Americans > 60 (> 60)
[2020-03-27] MEDS: Acetaminophen 325 MG TABLET PO PRN (20:06)
[2020-03-28] MEDS: hydrALAZINE 25 MG TABLET PO SCH ×3 (01:00→10:18)
[2020-03-28] MEDS: *HR* Enoxaparin 40 MG/0.4 ML SYRINGE SQ SCH (05:03)
[2020-03-28] MEDS ORDERED: Cefepime HCl 2,000 MG in Water for inj. (sterile) 20 ML IVP SCH (08:00)
[2020-03-28] MEDS ORDERED: Dexamethasone 4 MG/ML VIAL IVP SCH (09:00)
[2020-03-28] MEDS: Aspirin 81 MG TAB.CHEW PO SCH (10:02)
[2020-03-28] MEDS: amLODIPine 5 MG TABLET PO SCH (10:03)
[2020-03-28] MEDS: Nystatin SUSP 5 ML UD.LIQ PO SCH (10:03)
[2020-03-28 10:41] LABS: Hematocrit 42.9 % (35.3-44.9); Hemoglobin 13.6 g/dL (11.5-15.4); Mean Corpuscular HGB Conc 31.7 g/dL (31.6-35.5); Mean Corpuscular Volume 94.5 fL (83.0-100.0); Mean Platelet Volume 11.5 fL (9.4-12.4); Platelet Count 219 K/mcL (140-400); Red Blood Count 4.54 M/mcL (3.82-4.97); Red Cell Distribution Width 14.6 % (11.5-14.5); White Blood Count 24.4 K/mcL (4.3-11.1)
[2020-03-28] MEDS ORDERED: *HR* HYDROmorphone (PF) 1 MG/ML SYRINGE IM PRN (10:57)
[2020-03-28 11:05] LABS: BUN/Creatinine Ratio 43 (6-26); Blood Urea Nitrogen 23 mg/dL (8-23); Calcium 7.7 mg/dL (8.6-10.3); Carbon Dioxide 22 mEq/L (23-29); Chloride 113 mEq/L (98-107); Glucose 121 mg/dL (70-105); Osmolality,Calculated 305 (280-300); Potassium 3.9 mEq/L (3.5-5.1); Sodium 145 mEq/L (136-145); eGFR For African Americans > 60 (> 60); eGFR For Non-African Americans > 60 (> 60)
[2020-03-28 11:33] VITALS: BP 169/99
[2020-03-28] MEDS: *HR* LORazepam 2 MG/ML VIAL IVP PRN ×6 (12:47→21:21)
[2020-03-28] MEDS ORDERED: Atropine 1% Opth Drops 100 DROP/5 ML BOTTLE SL PRN (14:04)
[2020-03-28] MEDS ORDERED: Haloperidol Lactate 5 MG/ML VIAL IVP PRN (14:06)
[2020-03-28] MEDS: Morphine Sulfate 2 MG/ML SYRINGE IVP SCH ×2 (14:29→18:32)
[2020-03-28] MEDS: Morphine Sulfate 2 MG/ML SYRINGE IVP PRN ×4 (16:29→21:20)
== END 2020-03-28 23:37 | disposition expired | DRG 871 ==
LOC: 2NENU 05:44 → EMEROOARM 05:44 → 2NENU 10:12 → SUATTDRO 15:43
PROVIDERS: ADMIT Internal Medicine; ATTEND Internal Medicine